=== PATIENT | female | born 1970 | race Caucasian/White ===

== ENCOUNTER 2024-08-07 21:25 | Inpatient (IN) | payer MEDICAID ==
[~2024-08-07] VITALS: Ht 152.4 cm; Wt 73.9 kg
[2024-08-07 21:30] VITALS: BP 135/63; PULSE 68; RESP 19; TEMP 37.8; O2SAT 98
[2024-08-07 22:00] VITALS: BP 133/63; PULSE 68; RESP 19; TEMP 37.9
[2024-08-07] MEDS ORDERED: BISACODYL 10MG SUPP PR PRN (22:30)
[2024-08-07] MEDS ORDERED: ONDANSETRON HCL 4MG/2ML INJ IV PRN (22:30)
[2024-08-07] MEDS ORDERED: SENNOSIDES 8.6MG TABLET PO PRN (22:30)
[2024-08-07] MEDS ORDERED: NITROGLYCERIN 0.4MG TABLET SL SL PRN (22:30)
[2024-08-07] MEDS ORDERED: HYDROCODONE/ACETAMINOPHEN 5/325MG TABLET PO PRN (22:30)
[2024-08-07] MEDS ORDERED: KCL 20MEQ/100ML PREMIX 100 ML IV PRN (22:30)
[2024-08-07] MEDS ORDERED: IPRATROPIUM/ALBUTEROL 0.5-3(2.5)MG/3ML NEB HHN PRN (22:30)
[2024-08-07] MEDS: ATORVASTATIN CALCIUM 40MG TABLET PO SCH (23:19)
[2024-08-07] MEDS: MELATONIN 3MG TABLET PO PRN (23:20)
[2024-08-07] MEDS: ACETAMINOPHEN 325MG TABLET PO PRN (23:20)
[2024-08-07] MEDS: NIFEDIPINE XL 30MG TAB PO SCH (23:20)
[2024-08-08] MEDS ORDERED: LOSA50TA41 MT (03:59)
[2024-08-08 08:00] VITALS: BP 118/66; PULSE 66; RESP 18; TEMP 36.2; O2SAT 97
[2024-08-08] MEDS ORDERED: LABETALOL HCL 300MG TABLET PO SCH (09:00)
[2024-08-08] MEDS: ASPIRIN 81MG EC TABLET PO SCH (09:43)
[2024-08-08] MEDS: CLOPIDOGREL 75MG TABLET PO SCH (09:43)
[2024-08-08] MEDS: LABETALOL HCL 100MG TABLET PO SCH (09:45)
[2024-08-08 11:31] LABS: BASOPHILS % 0.5 % (0.0-2.0); HEMATOCRIT. 33.3 % (36.0-48.0); HEMOGLOBIN. 11.3 g/dL (12.0-16.0); LYMPHOCYTES % 8.7 % (20.0-50.0); MEAN CORPUSCULAR HEMOGLOBIN 31.3 pg (28.0-32.0); MEAN CORPUSCULAR VOLUME 92.2 fL (81.0-99.0); MEAN PLATELET VOLUME 8.1 fl (7.4-10.4); MONOCYTES % 10.6 % (2.0-8.0); NEUTROPHILS % 78.2 % (40.0-76.0); PLATELET 310 x1000/uL (130-400); RED BLOOD CELL COUNT 3.61 mill/uL (4.2-5.4); RED CELL DISTRIBUTION WIDTH 13.3 % (11.6-14.6); WHITE BLOOD COUNT 8.3 x1000/uL (4.5-11.0)
[2024-08-08 11:38] LABS: CHLORIDE 103 mEq/L (98-107); POTASSIUM 4.8 mEq/L (3.5-5.1); SODIUM 137 mEq/L (136-145)
[2024-08-08 11:39] LABS: CALCIUM 10.5 mg/dL (8.7-10.4); CARBON DIOXIDE 24 mEq/L (21-32)
[2024-08-08 11:44] LABS: CREATININE 1.1 mg/dL (0.6-1.0); GLUCOSE 108 mg/dL (70-105); UREA NITROGEN BLOOD 24 mg/dL (9-23)
[2024-08-08 11:46] LABS: ALANINE AMINOTRANSFERASE 66 IU/L (10-49); ALBUMIN 4.1 g/dL (3.2-4.8); ASPARTATE AMINOTRANSFERASE 48 IU/L (<34); BILIRUBIN TOTAL 0.6 mg/dL (0.1-1.0); PREALBUMIN 7.7 mg/dl (10.0-40.0); PROTEIN TOTAL 7.8 g/dL (6.0-8.3)
[2024-08-08 12:06] LABS: HEPATITIS B SURFACE ANTIGEN NEGATIVE (Negative)
[2024-08-08 12:28] LABS: HEPATITIS C AB NON REACTIVE (Neg) (Negative)
[2024-08-08] MEDS: HEPARIN 5000 UNITS/ML VIAL SUBCUT SCH (13:52)
[2024-08-08 14:24] LABS: CLARITY URINE CLEAR (CLEAR); COLOR URINE YELLOW (YELLOW); GLUCOSE URINE NEGATIVE (NEGATIVE); KETONES URINE NEGATIVE (NEGATIVE); LEUKOCYTE ESTERASE URINE NEGATIVE (NEGATIVE); NITRITE URINE NEGATIVE (NEGATIVE); OCCULT BLOOD URINE 1+ (NEGATIVE); PROTEIN URINE 1+ (NEGATIVE); SPECIFIC GRAVITY URINE 1.019 (1.005-1.030); UROBILINOGEN URINE 0.2 E.U./dL (0.2-1.0)
[2024-08-08 14:39] LABS: SQUAMOUS EPITHELIAL CELL URINE RARE /lpf (RARE/1+)
[2024-08-08 14:40] LABS: BACTERIA URINE TRACE; MUCUS URINE TRACE /lpf (< = 2+)
[2024-08-08 14:42] LABS: RBC URINE 15-25 /hpf (0-2)
[2024-08-08 19:07] LABS: INFLUENZA TYPE A Presumptive Negative (Pres. Neg.)
[2024-08-08 19:08] LABS: INFLUENZA TYPE B Presumptive Negative (Pres. Neg.)
[2024-08-08 19:09] LABS: RESPIRATORY SYNCYTIAL VIRUS Not Detected (Not Detectd)
[2024-08-08] MEDS ORDERED: HYDRALAZINE HCL 25MG TABLET PO PRN (19:15)
[2024-08-08 20:00] VITALS: BP 144/63; PULSE 71; RESP 20; TEMP 36.9; O2SAT 95
[2024-08-09 06:44] LABS: BASOPHILS % 0.4 % (0.0-2.0); EOSINOPHILS % 1.5 % (0.0-5.0); HEMATOCRIT. 33.4 % (36.0-48.0); HEMOGLOBIN. 11.4 g/dL (12.0-16.0); LYMPHOCYTES % 11.5 % (20.0-50.0); MEAN CORPUSCULAR HEMOGLOBIN 31.3 pg (28.0-32.0); MEAN CORPUSCULAR HGB CONC 34.1 g/dL (31.0-37.0); MEAN CORPUSCULAR VOLUME 91.7 fL (81.0-99.0); MEAN PLATELET VOLUME 7.9 fl (7.4-10.4); MONOCYTES % 9.2 % (2.0-8.0); NEUTROPHILS % 77.4 % (40.0-76.0); PLATELET 333 x1000/uL (130-400); RED BLOOD CELL COUNT 3.64 mill/uL (4.2-5.4); RED CELL DISTRIBUTION WIDTH 13.4 % (11.6-14.6); WHITE BLOOD COUNT 8.1 x1000/uL (4.5-11.0)
[2024-08-09 06:57] LABS: CARBON DIOXIDE 25 mEq/L (21-32); CHLORIDE 101 mEq/L (98-107); SODIUM 135 mEq/L (136-145)
[2024-08-09 06:58] LABS: CALCIUM 10.8 mg/dL (8.7-10.4)
[2024-08-09 07:02] LABS: AMMONIA 30 uMol/L (<32)
[2024-08-09 07:03] LABS: CREATININE 1.2 mg/dL (0.6-1.0); GLUCOSE 107 mg/dL (70-105); UREA NITROGEN BLOOD 24 mg/dL (9-23)
[2024-08-09 07:04] LABS: ALANINE AMINOTRANSFERASE 75 IU/L (10-49); ALBUMIN 4.4 g/dL (3.2-4.8); ASPARTATE AMINOTRANSFERASE 53 IU/L (<34); FERRITIN 464 ng/mL (10-291); FOLIC ACID (FOLATE) SERUM > 20.00 ng/mL (>5.38)
[2024-08-09 07:05] LABS: BILIRUBIN TOTAL 0.7 mg/dL (0.1-1.0); VITAMIN B12 SERUM 1300 pg/mL (211-911)
[2024-08-09 08:00] VITALS: BP 134/60; PULSE 69; RESP 20; TEMP 35.9; O2SAT 99
[2024-08-09 08:05] LABS: PROTEIN TOTAL 8.3 g/dL (6.0-8.3)
[2024-08-09 08:07] LABS: THYROID STIMULATING HORMONE 8.34 uIU/mL (0.55-4.78)
[2024-08-09 08:16] LABS: TOTAL IRON BINDING CAPACITY 744 ug/dl (250-425)
[2024-08-09 08:17] LABS: IRON 36 ug/dL (50-170)
[2024-08-09] MEDS: FERROUS SULFATE 325MG TABLET PO SCH (14:14)
[2024-08-09] MEDS: IRON SUCROSE COMPLEX 200 MG in SODIUM CHLORIDE 0.9% 100 ML IV SCH (17:07)
[2024-08-09] MEDS: ACETAMINOPHEN 325MG TABLET PO PRN (18:10)
[2024-08-09 20:00] VITALS: BP 107/54; PULSE 69; RESP 18; TEMP 36.6; O2SAT 98
[2024-08-10 08:00] VITALS: BP 131/56; PULSE 70; RESP 18; TEMP 37.1; O2SAT 98
[2024-08-10 08:11] LABS: POTASSIUM 4.3 mEq/L (3.5-5.1)
[2024-08-10 08:16] LABS: BASOPHILS % 0.3 % (0.0-2.0); EOSINOPHILS % 1.4 % (0.0-5.0); HEMATOCRIT. 31.4 % (36.0-48.0); HEMOGLOBIN. 10.5 g/dL (12.0-16.0); LYMPHOCYTES % 10.6 % (20.0-50.0); MEAN CORPUSCULAR HEMOGLOBIN 30.9 pg (28.0-32.0); MEAN CORPUSCULAR HGB CONC 33.5 g/dL (31.0-37.0); MEAN CORPUSCULAR VOLUME 92.3 fL (81.0-99.0); MEAN PLATELET VOLUME 8.2 fl (7.4-10.4); MONOCYTES % 9.5 % (2.0-8.0); NEUTROPHILS % 78.2 % (40.0-76.0); PLATELET 369 x1000/uL (130-400); RED BLOOD CELL COUNT 3.41 mill/uL (4.2-5.4); WHITE BLOOD COUNT 8.5 x1000/uL (4.5-11.0)
[2024-08-10 08:17] LABS: CREATININE 1.1 mg/dL (0.6-1.0)
[2024-08-10 08:21] LABS: T4 FREE 0.97 ng/dL (0.89-1.76)
[2024-08-10] MEDS: ASCORBIC ACID 500 MG TABLET PO SCH (09:00)
[2024-08-10 20:00] VITALS: BP 117/47; PULSE 82; RESP 18; TEMP 36.8; O2SAT 98
[2024-08-11 06:54] LABS: THYROID STIMULATING HORMONE 7.02 uIU/mL (0.55-4.78)
[2024-08-11 08:00] VITALS: BP 147/64; PULSE 71; RESP 20; TEMP 36.3; O2SAT 97
[2024-08-11] MEDS: SODIUM CHLORIDE 0.9% 500 ML IV ONE (16:15)
[2024-08-11 20:00] VITALS: BP 135/60; PULSE 75; RESP 18; TEMP 36.3; O2SAT 98
[2024-08-12 08:00] VITALS: BP 127/58; PULSE 70; RESP 18; TEMP 36.5; O2SAT 97
[2024-08-12 09:10] LABS: CA 19-9 11 U/mL (0-35); CANCER ANTIGEN 125 42.8 U/mL (0.0-38.1); CARCINOEMBRYONIC AG - SEND OUT 1.4 ng/mL (0.0-4.7); THYROID PEROXIDASE ANTIBODY 32 IU/mL (0-34)
[2024-08-12] MEDS ORDERED: NALOXONE HCL 0.4MG/ML VIAL IV PRN (09:30)
[2024-08-12 10:56] LABS: BASOPHILS % 0.4 % (0.0-2.0); EOSINOPHILS % 0.8 % (0.0-5.0); HEMOGLOBIN. 10.5 g/dL (12.0-16.0); LYMPHOCYTES % 8.7 % (20.0-50.0); MEAN CORPUSCULAR HEMOGLOBIN 30.9 pg (28.0-32.0); MEAN CORPUSCULAR HGB CONC 33.8 g/dL (31.0-37.0); MEAN CORPUSCULAR VOLUME 91.6 fL (81.0-99.0); MEAN PLATELET VOLUME 7.9 fl (7.4-10.4); MONOCYTES % 9.3 % (2.0-8.0); NEUTROPHILS % 80.8 % (40.0-76.0); PLATELET 466 x1000/uL (130-400); RED BLOOD CELL COUNT 3.38 mill/uL (4.2-5.4); RED CELL DISTRIBUTION WIDTH 13.3 % (11.6-14.6); WHITE BLOOD COUNT 11.6 x1000/uL (4.5-11.0)
[2024-08-12 11:02] LABS: POTASSIUM 4.3 mEq/L (3.5-5.1)
[2024-08-12 11:03] LABS: CALCIUM 10.5 mg/dL (8.7-10.4)
[2024-08-12 11:08] LABS: CREATININE 1.1 mg/dL (0.6-1.0)
[2024-08-12] MEDS: LABETALOL HCL 300MG TABLET PO SCH (13:57)
[2024-08-12 20:00] VITALS: BP 144/71; PULSE 69; RESP 20; TEMP 37.9; O2SAT 96
[2024-08-13 08:00] VITALS: BP 131/60; PULSE 69; RESP 20; TEMP 36.4; O2SAT 96
[2024-08-13 10:08] LABS: ANGIOTENSION CONVERTING ENZYME 26 U/L (14-82)
[2024-08-13 13:12] LABS: ACTH PLASMA 4 pg/mL (7.2-63.3)
[2024-08-13 20:00] VITALS: BP 152/61; PULSE 67; RESP 18; TEMP 37.3; O2SAT 99
[2024-08-14 05:33] VITALS: TEMP 37.1
[2024-08-14 08:00] VITALS: BP 146/59; PULSE 60; RESP 19; TEMP 36.2; O2SAT 97
[2024-08-14 20:00] VITALS: BP 91/48; PULSE 77; RESP 18; TEMP 36.6; O2SAT 97
[2024-08-14 22:13] LABS: BASOPHILS % 0.5 % (0.0-2.0); EOSINOPHILS % 1.7 % (0.0-5.0); HEMATOCRIT. 29.7 % (36.0-48.0); LYMPHOCYTES % 15.5 % (20.0-50.0); MEAN CORPUSCULAR HEMOGLOBIN 31.4 pg (28.0-32.0); MEAN CORPUSCULAR HGB CONC 33.7 g/dL (31.0-37.0); MEAN CORPUSCULAR VOLUME 93.1 fL (81.0-99.0); MONOCYTES % 11.4 % (2.0-8.0); NEUTROPHILS % 70.9 % (40.0-76.0); PLATELET 454 x1000/uL (130-400); RED BLOOD CELL COUNT 3.19 mill/uL (4.2-5.4); RED CELL DISTRIBUTION WIDTH 13.4 % (11.6-14.6); WHITE BLOOD COUNT 7.7 x1000/uL (4.5-11.0)
[2024-08-14 22:15] LABS: POTASSIUM 4.4 mEq/L (3.5-5.1)
[2024-08-14 22:16] LABS: CALCIUM 10.4 mg/dL (8.7-10.4)
[2024-08-14 22:21] LABS: CREATININE 1.2 mg/dL (0.6-1.0)
[2024-08-14 23:00] VITALS: BP 153/71; PULSE 77
[2024-08-15 08:00] VITALS: BP 153/63; PULSE 65; RESP 18; TEMP 36.4; O2SAT 95
[2024-08-15 20:00] VITALS: BP 155/74; PULSE 72; RESP 19; TEMP 36.5; O2SAT 97
[2024-08-16 08:00] VITALS: BP 162/66; PULSE 67; RESP 18; TEMP 36.4; O2SAT 96
[2024-08-16] MEDS: PANTOPRAZOLE SODIUM 40 MG/VIAL IV SCH (08:59)
[2024-08-16 20:00] VITALS: BP 128/59; PULSE 72; RESP 20; TEMP 37.2; O2SAT 98
[2024-08-17 05:08] LABS: A/G RATIO 0.7 (0.7-1.7); ALBUMIN 2.8 g/dL (2.9-4.4); ALPHA-1-GLOBULIN 0.5 g/dL (0.0-0.4); ALPHA-2-GLOBULIN 1.2 g/dL (0.4-1.0); BETA GLOBULIN 1.2 g/dL (0.7-1.3); GAMMA GLOBULINS 1.1 g/dL (0.4-1.8); GLOBULIN TOTAL 4.1 g/dL (2.2-3.9); M-SPIKE Not Observed g/dL (Not Observed); TOTAL PROTEIN SERUM 6.9 g/dL (6.0-8.5)
[2024-08-17 08:00] VITALS: BP 151/75; PULSE 67; RESP 20; TEMP 36.1; O2SAT 99
[2024-08-17] MEDS: PANTOPRAZOLE 40MG DR TABLET PO SCH (16:46)
[2024-08-17 19:19] LABS: T4 FREE 0.98 ng/dL (0.89-1.76); THYROID STIMULATING HORMONE 3.95 uIU/mL (0.55-4.78)
[2024-08-17 20:00] VITALS: BP 131/41; PULSE 65; RESP 19; TEMP 36.5; O2SAT 99
[2024-08-18 08:00] VITALS: BP 140/55; PULSE 66; RESP 20; TEMP 36.5; O2SAT 96
[2024-08-18 20:00] VITALS: BP 110/59; PULSE 73; RESP 18; TEMP 36.3; O2SAT 96
[2024-08-19 06:18] LABS: BASOPHILS % 0.6 % (0.0-2.0); EOSINOPHILS % 1.8 % (0.0-5.0); HEMATOCRIT. 29.7 % (36.0-48.0); HEMOGLOBIN. 9.9 g/dL (12.0-16.0); LYMPHOCYTES % 14.3 % (20.0-50.0); MEAN CORPUSCULAR HEMOGLOBIN 30.7 pg (28.0-32.0); MEAN CORPUSCULAR HGB CONC 33.3 g/dL (31.0-37.0); MEAN CORPUSCULAR VOLUME 92.2 fL (81.0-99.0); MEAN PLATELET VOLUME 7.9 fl (7.4-10.4); NEUTROPHILS % 72.3 % (40.0-76.0); PLATELET 264 x1000/uL (130-400); RED BLOOD CELL COUNT 3.22 mill/uL (4.2-5.4); RED CELL DISTRIBUTION WIDTH 13.2 % (11.6-14.6); WHITE BLOOD COUNT 7.3 x1000/uL (4.5-11.0)
[2024-08-19 06:39] LABS: POTASSIUM 4.4 mEq/L (3.5-5.1)
[2024-08-19 06:41] LABS: CALCIUM 10.5 mg/dL (8.7-10.4)
[2024-08-19 06:45] LABS: CREATININE 1.1 mg/dL (0.6-1.0)
[2024-08-19 08:00] VITALS: BP 153/77; PULSE 71; RESP 18; TEMP 36.7; O2SAT 98
[2024-08-19] MEDS: FAMOTIDINE 20MG TABLET PO SCH (08:57)
[2024-08-19 20:00] VITALS: BP 129/64; PULSE 64; RESP 18; TEMP 36.9; O2SAT 96
[2024-08-20 08:00] VITALS: BP 122/67; PULSE 68; RESP 20; TEMP 36.3; O2SAT 96
[2024-08-20 20:00] VITALS: BP 130/58; PULSE 67; RESP 20; TEMP 36.3; O2SAT 98
[2024-08-21 08:00] VITALS: BP 144/47; PULSE 68; RESP 18; TEMP 36.3; O2SAT 96
[2024-08-21] MEDS: POLYETHYLENE GLYCOL 3350 (17GM) 1 DOSE PACK PO PRN (18:37)
[2024-08-21 20:00] VITALS: BP 116/80; PULSE 66; RESP 18; TEMP 36.3; O2SAT 97
[2024-08-22 08:00] VITALS: BP 141/65; PULSE 71; RESP 18; TEMP 36.5; O2SAT 97
[2024-08-22 20:00] VITALS: BP 147/66; PULSE 68; RESP 18; TEMP 36.6; O2SAT 94
[2024-08-23 08:00] VITALS: BP 144/60; PULSE 76; RESP 18; TEMP 36.8; O2SAT 97
[2024-08-23 20:00] VITALS: BP 130/73; PULSE 76; RESP 18; TEMP 36.8; O2SAT 96
[2024-08-24 06:57] LABS: BASOPHILS % 0.4 % (0.0-2.0); EOSINOPHILS % 1.9 % (0.0-5.0); HEMATOCRIT. 28.8 % (36.0-48.0); HEMOGLOBIN. 9.6 g/dL (12.0-16.0); LYMPHOCYTES % 17.3 % (20.0-50.0); MEAN CORPUSCULAR HEMOGLOBIN 30.7 pg (28.0-32.0); MEAN CORPUSCULAR HGB CONC 33.4 g/dL (31.0-37.0); MEAN PLATELET VOLUME 7.8 fl (7.4-10.4); MONOCYTES % 8.9 % (2.0-8.0); NEUTROPHILS % 71.5 % (40.0-76.0); PLATELET 207 x1000/uL (130-400); RED BLOOD CELL COUNT 3.13 mill/uL (4.2-5.4); RED CELL DISTRIBUTION WIDTH 13.5 % (11.6-14.6); WHITE BLOOD COUNT 5.9 x1000/uL (4.5-11.0)
[2024-08-24 06:58] LABS: POTASSIUM 4.4 mEq/L (3.5-5.1)
[2024-08-24 06:59] LABS: CALCIUM 10.3 mg/dL (8.7-10.4)
[2024-08-24 08:00] VITALS: BP 152/71; PULSE 72; RESP 19; TEMP 36.8; O2SAT 97
[2024-08-24 20:00] VITALS: BP 133/57; PULSE 73; RESP 18; TEMP 36.7; O2SAT 97
[2024-08-25 08:00] VITALS: BP 139/67; PULSE 70; RESP 20; TEMP 36.4; O2SAT 97
[2024-08-25 20:00] VITALS: BP 140/68; PULSE 73; RESP 19; TEMP 36.9; O2SAT 96
[2024-08-26 08:00] VITALS: BP 147/76; PULSE 70; RESP 18; TEMP 36.9; O2SAT 98
[2024-08-26] MEDS ORDERED: CLOP-31 PO (11:05)
[2024-08-26] MEDS ORDERED: LIP40 PO (11:05)
[2024-08-26] MEDS ORDERED: NIFE-33 PO (11:05)
[2024-08-26] MEDS ORDERED: LABE300T36 PO (11:05)
[2024-08-26] MEDS ORDERED: FERR-63 PO (11:05)
[2024-08-26] MEDS ORDERED: ASPI-1406 PO (11:05)
[2024-08-26] MEDS ORDERED: FAMO20TA8 PO (11:05)
[2024-08-26] MEDS ORDERED: LOSA50TA41 MT (11:24)
[2024-08-26 11:43] VITALS: BP 147/76; PULSE 70; TEMP 98.4; O2SAT 98
== END 2024-08-26 12:45 | disposition home health service (06) | DRG 45 ==
PROVIDERS: ADMIT Physical Medicine & Rehabilitation Spinal Cord Injury Medicine; ATTEND Family Medicine Adult Medicine
DX: I63.511 Cerebral infarction due to unspecified occlusion or stenosis of right middle cerebral artery (principal); J96.00 Acute respiratory failure, unspecified whether with hypoxia or hypercapnia; I21.A1 Myocardial infarction type 2; I71.012 Dissection of descending thoracic aorta; K86.2 Cyst of pancreas; I69.354 Hemiplegia and hemiparesis following cerebral infarction affecting left non-dominant side; I66.11 Occlusion and stenosis of right anterior cerebral artery; M54.9 Dorsalgia, unspecified; I67.2 Cerebral atherosclerosis; D64.9 Anemia, unspecified; E83.52 Hypercalcemia; E87.1 Hypo-osmolality and hyponatremia; E87.5 Hyperkalemia; I12.9 Hypertensive chronic kidney disease with stage 1 through stage 4 chronic kidney disease, or unspecified chronic kidney disease; N17.9 Acute kidney failure, unspecified; R31.29 Other microscopic hematuria; R41.4 Neurologic neglect syndrome; N28.1 Cyst of kidney, acquired; D72.829 Elevated white blood cell count, unspecified; E21.0 Primary hyperparathyroidism; E78.00 Pure hypercholesterolemia, unspecified; I65.21 Occlusion and stenosis of right carotid artery; K57.30 Diverticulosis of large intestine without perforation or abscess without bleeding; N18.31 Chronic kidney disease, stage 3a; D25.9 Leiomyoma of uterus, unspecified; K80.20 Calculus of gallbladder without cholecystitis without obstruction; N20.0 Calculus of kidney; E61.1 Iron deficiency; R94.6 Abnormal results of thyroid function studies; R53.81 Other malaise; Z60.2 Problems related to living alone; R97.1 Elevated cancer antigen 125 [CA 125]; Z91.018 Allergy to other foods; Z79.02 Long term (current) use of antithrombotics/antiplatelets; Z79.82 Long term (current) use of aspirin; Z79.899 Other long term (current) drug therapy; Z82.49 Family history of ischemic heart disease and other diseases of the circulatory system; Z91.81 History of falling; I25.2 Old myocardial infarction; Z95.2 Presence of prosthetic heart valve; R47.1 Dysarthria and anarthria; R47.01 Aphasia; R13.10 Dysphagia, unspecified
CPT/HCPCS: 36415; 71046; 74176; 76770; 80048; 80053; 81003; 82024; 82140; 82164; 82306; 82310; 82330; 82378; 82533; 82607; 82728; 82746; 82977; 83036; 83540; 83550; 83970; 84134; 84145; 84155; 84165; 84439; 84443; 84481; 85025; 86301; 86304; 86376; 86705; 87340; 87420; 87426; 87804; 92523; 92610; 93970; 97110; 97112; 97116; 97150; 97162; 97166; 97530; 97535; J1644; J2470; J7050